=== PATIENT | male | born 1970 | race Caucasian/White ===

== ENCOUNTER 2019-02-02 07:22 | Day surgery (SDC) | payer BC ==
[~2019-02-02] VITALS: Ht 175.3 cm; Wt 86.4 kg
[2019-02-02] VITALS (17 sets, daily range): BP systolic 107–123; BP diastolic 68–79; PULSE 50–74; RESP 10–20; Ht 175.3 cm; Wt 86.4 kg
[~2019-02-02 07:22] MED LIST: CEFAZOLIN 2 GM/50 ML (PMX) 50 ML IVPB ONE
[2019-02-02] MEDS ORDERED: LACTATED RINGER'S 1,000 ML IV SCH (09:00)
[2019-02-02] MEDS ORDERED: LIDOCAINE 1% (MPF) 30 ML INJ ONE (09:37)
[2019-02-02] MEDS ORDERED: POLYMYXIN/BACITRACIN 1L IRRIG ONE (09:37)
[2019-02-02] MEDS ORDERED: BUPIVACAINE 0.5%/EPI (SDV) 30 ML INJ ONE (09:37)
--- NOTE | 2019-02-02 09:41 | PREAC ---
Date/Time of Note Date/Time of Note DATE: 02/02/19 TIME: 09:38 Anesthesia Eval and Record Evaluation Time Pre-Procedure Interview DATE: 02/02/19 TIME: 09:38 Age 48 Sex male NPO: 8 hrs Preoperative diagnosis Right inguinal hernia Planned procedure Right inguinal hernia repair Past Medical History Past Medical History: Includes Heme: Thrombocytopenia (plt = 139) Surgery & Anesthesia Issues No known issue Meds Anticoagulation: No Beta Cristy within 24 hr: No Reason Beta Cristy not given: Pt. not on B-Cristy No Active Prescriptions or Reported Meds Current Medications Lactated Ringer's 1,000 ml @ 25 mls/hr Q24H IV ; Start 02/02/19 at 09:00 Meds reviewed: Yes Allergies Coded Allergies: No Known Allergies (Verified Allergy, Unknown, 02/02/19) Allergies Reviewed: Yes Labs/Studies Labs Reviewed: Reviewed by anesthesiologist test: N/A Studies: ECG (SR), CXR (WNL) Pre-procedure Exam Last vitals Vital Signs Date Temp Pulse Resp B/P (MAP) Pulse Ox O2 O2 Flow FiO2 Time Delivery Rate 02/02/19 96.5 71 16 109/76 98 Room Air 08:27 (87) Airway: Adequate mouth opening, Adequate thyromental dist Mallampati: Mallampati II Teeth: Abnormal (Small chips) Lung: Normal Heart: Normal ASA Physical Status ASA physical status: 2 Emergency: None Planned Anesthetic General/MAC: LMA Pre-operative Attestations Prior to commencing anesthesia and surgery, the patient was re-evaluated, there was verification of: *The patient's identity *The results of appropriate recent lab work and preoperative vital signs *The above evaluation not changing prior to induction *Anesthetic plan, risk benefits, alternative and complications discussed with patient/family; questions answered; patient/family understands, accepts and wishes to proceed. YANCY FERRO CRNA Feb 02, 2019 09:41
--- NOTE | 2019-02-02 09:45 | HPN ---
Date/Time of Note Date/Time of Note DATE: 02/02/19 TIME: 09:44 Interval H&P Admission Note Pt. seen H&P reviewed: No system changes GHASSAN DUONG MD Feb 02, 2019 09:45
[2019-02-02] MEDS ORDERED: LIDOCAINE 2% (SDV) 5 ML INJ ONE (09:51)
[2019-02-02] MEDS ORDERED: PROPOFOL 20 ML ONE (09:51)
[2019-02-02] MEDS ORDERED: FENTAnyl 50 MCG/ML VIAL ONE ×2 (09:51→11:39)
[2019-02-02] MEDS ORDERED: SEVOFLURANE 15 MIN ONE (10:00)
--- NOTE | 2019-02-02 10:21 | OPR ---
Date/Time of Note Date/Time of Note DATE: 02/02/19 TIME: 10:19 Operative Report Procedure Date: Feb 02, 2019 Preoperative Diagnosis Right inguinal hernia, symptomatic BMI 28 Postoperative Diagnosis Right inguinal hernia, symptomatic (direct and indirect) Right cord lesion BMI 28 Operation/Procedure Performed 1. Open right inguinal hernia repair with mesh 2. Excision of right cord lesion (5 x 2.5 cm) 3. Ilioinguinal nerve block 4. Local anesthetic injection, [id number] Surgeon Ghassan Duong MD Regional Education Manager Irma Crain NP Anesthesia Type: general (And local) Anesthesiologist: YANCY FERRO CRNA Estimated Blood Loss: 0 - 10 ml's Transfusion none Specimen ultrapro mesh, large Grafts/Implants Ultra pro mesh large Tubes/Drains None Complications none Pt Condition Post Procedure: stable Disposition: PACU Indications Patient with symptomatic right inguinal hernia here for surgical repair. Risks include but are not limited to bleeding, infection, abscess, seroma, leak, damage to intestines or any intra-abdominal/intrapelvic structures, hernia formation or recurrence, chronic pain, need for re-operations or further surgeries, UT, stroke, PE, DVT, pneumonia, organ failures, or even . Procedure Description Patient was brought and placed supine on the operating table, and after induction of anesthesia, he was prepped and draped in usual sterile fashion and timeout was performed. SCDs had already been placed. Preoperative antibiotics had already been administered. All pressure points were well-padded. The ilioinguinal nerve block was performed approximately 2 cm medial and inferio r to superior anterior iliac spine. Local anesthetic was infiltrated along the incision parallel to the inguinal ligament. Incision was made in the skin and carried through subcutaneous tissue to the external oblique fascia. Fascia was opened sharply. Using [place] the fascia was opened with care taken not to injure the ilioinguinal nerve. Fascia was opened into the external ring. There was a direct and indirect hernia identified and at this point [place] drain was placed around the hernia structures and the cord structures. Using then gentle dissection I was able to separate the hernia sac from the cord structures safely. Hernia sac was placed back into the abdomen. There is also a lipomatous lesion of the cord which was dissected off and and sent to pathology. Ultra pro mesh was used to secure to the pubic tubercle 2 with 0 Prolene. The lower suture was ran along the shelving edge all the way lateral to the internal ring. The superior suture was ran along the conjoined tendon past the internal ring as well. The 2 leaves of the mesh were sutured together just lateral to the internal ring. This point the hernia site was fully covered. Wound was irrigated to clear suctioning fluid. There was complete hemostasis. Wound was closed in multiple layers with irrigation between each layer. 2-0 Vicryl was used to close the external fascia and a running fashion leaving space for the external ring. Jose R's fascia was closed with 3-0 Vicryl in running fashion followed by 4-0 Monocryl subcuticular skin closure. Dermabond was applied. Patient was extubated and transferred to recovery room in stable condition and all counts were correct at the end of the operation 2. GHASSAN DUONG MD Feb 02, 2019 10:21
[2019-02-02] MEDS ORDERED: GLYCOPYRROLATE 0.4 MG INJ ONE (10:41)
[2019-02-02] MEDS ORDERED: ROCURONIUM 50 MG INJ ONE (10:41)
[2019-02-02] MEDS ORDERED: NEOSTIGMINE 3 MG/3 ML SYRINGE ONE (10:41)
[2019-02-02] MEDS ORDERED: SUCCINYLCHOLINE CHLORIDE 100 MG/5 ML SYG IV ONE (10:42)
[2019-02-02] MEDS ORDERED: DEXAMETHASONE 4 MG/ML 5 ML INJ ONE (10:44)
[2019-02-02] MEDS ORDERED: ONDANSETRON 4 MG INJ ONE (10:44)
[2019-02-02] MEDS ORDERED: EPHEDrine 25 MG/5 ML SYG ONE (10:47)
--- NOTE | 2019-02-02 11:54 | PAC ---
Date/Time of Note Date/Time of Note DATE: 02/02/19 TIME: 11:53 Post-Anesthesia Notes Post-Anesthesia Note Last documented vital signs 123/60, 85, 100%, 14, 97.4 Vital Signs Date Temp Pulse Resp B/P (MAP) Pulse Ox O2 O2 Flow FiO2 Time Delivery Rate 02/02/19 96.5 71 16 109/76 98 Room Air 08:27 (87) Activity: WNL Respiratory function: WNL Cardiovascular function: WNL Mental status: Baseline Pain reasonably controlled: Yes Hydration appropriate: Yes Nausea/Vomiting absent: Yes YANCY FERRO CRNA Feb 02, 2019 11:54
[2019-02-02] MEDS ORDERED: morphine 2 MG INJ IV PRN (12:00)
[2019-02-02] MEDS ORDERED: HYDROCODONE/APAP (5/325) TAB PO PRN ×2 (12:00)
[2019-02-02] MEDS ORDERED: ONDANSETRON 4 MG INJ IV PRN ×2 (12:00)
[2019-02-02] MEDS ORDERED: LABETALOL HCL 20MG INJ IV PRN (12:00)
[2019-02-02] MEDS ORDERED: FENTAnyl 50 MCG/ML VIAL IV PRN ×2 (12:00)
[2019-02-02] MEDS ORDERED: OXYCODONE/ACETAMINOPHEN (5/325) TAB PO PRN ×2 (12:00)
[2019-02-02] MEDS ORDERED: MEPERIDINE 25 MG INJ IV PRN (12:00)
== END 2019-02-02 15:00 | disposition home or self-care (01) ==
LOC: SDS 07:22
PROVIDERS: ATTEND Surgery
DX: K40.90 Unilateral inguinal hernia, without obstruction or gangrene, not specified as recurrent (principal)
CPT/HCPCS: 49505; 88302; C1781; J0690; J1100; J2270; J2405; J2710; J3010; Z7512; Z7610